=== PATIENT | male | born 1970 | race Caucasian/White ===

== ENCOUNTER 2016-11-18 12:43 | Inpatient (IN) | payer OTHER ==
[~2016-11-18] VITALS: Ht 172.7 cm; Wt 109.0 kg
[~2016-11-18 12:43] MED LIST: ADVAIR 250/501 DISK IH; AMBIEN5 MG PO; ASPIR 8181 M1 PO; ASPIRIN325 MG PO; ATARAX,VISTARIL50 MG PO; AVELOX400 MG PO; CARAFATE1 GM PO; DESYREL100 MG PO; DIAZEPAM5 MG PO; Desyrel PO; ECPIRIN325 M1; ELAVIL10 MG PO; Ecotrin PO; FLEXERIL10 MG PO; FLEXERIL5 MG PO; FLONASE16 G1 BOTH NARES; FLONASE16 G1 NS; FLOVENT DISKUS1 DIS2; GABAPENTIN100 MG PO; HYDROCODONE-AP1 EAC8 PO; IMDUR60 MG PO; LISINOPRIL40 MG PO; LOPRESSOR50 MG PO; MOBIC7.5 MG PO; MULTIPLE VITAM1 EACH PO; MULTIVITAMIN1 EAC2 PO; NAPROXEN500 MG PO; NEURONTIN300 MG PO; NEXIUM40 MG PO; NITROGLYCERIN0.4 MG SL; OMEPRAZOLE20 MG PO; OXYCODONE5 MG PO; OxyCODONE PO; PERCOCET 5/31 TABLET PO; PLAVIX75 MG PO; PREDNISONE20 MG PO; PREDNISONE50 MG PO; PRILOSEC20 MG PO; PRINIVIL40 MG PO; PROAIR HFA8.5 GM; Proventil,Ventolin H IH; REGLAN10 MG PO; REQUIP1 MG PO; REQUIP2 MG PO; ROBITUSSIN AC,T10 ML PO; SIMVASTATIN40 M1 PO; SIMVASTATIN40 MG PO; SUCRALFATE1 GM PO; TOPROL XL50 MG PO; TRAMADOL HCL50 MG; TRAMADOL HCL50 MG PO; TRAZODONE HCL100 MG PO; ULTRAM50 MG PO; VALIUM5 MG; VENTOLIN HFA18 GM IH; ZITHROMAX Z-PA250 MG PO
[2016-11-18 14:47] LABS: EOSINOPHIL (%) 0.6 % (0-5); HEMATOCRIT 47.4 % (38.0-50.0); IMMATURE GRANULOCYTE (%) 0.3 % (0.0-0.7); INSTRUMENT ABS NEUTROPHIL CT 5.3 K/uL; LYMPHOCYTE COUNT 1.1 K/uL (1.0-2.8); MCH 27.6 PG (29.0-34.0); MCHC 33.5 G/DL (30.0-36.0); MCV 82.1 FL (86-99); MEAN PLAT.VOLUME 11.2 uM^3 (9.0-12.4); MONOCYTE (%) 4.3 % (3-12); MONOCYTE COUNT 0.3 K/uL (0-0.8); NEUTROPHIL (%) 78.4 % (45-76); NEUTROPHIL COUNT 5.3 K/uL (1.8-6.4); PLATELET COUNT 225 K/uL (156-360); RED BLOOD COUNT 5.77 M/uL (4.00-5.50); WHITE BLOOD COUNT 6.7 K/uL (4.1-10.2)
[2016-11-18 14:53] LABS: CHLORIDE 107 mEq/L (99-109); SODIUM 142 mEq/L (136-147)
[2016-11-18 14:55] LABS: GLUCOSE 101 mg/dL (70-99)
[2016-11-18 14:56] LABS: ANION GAP 15 MEQ/L (2-14)
[2016-11-18 14:59] LABS: GFR ESTIMATE (CALCULATED) > 59 mL/min/
[2016-11-18 15:00] LABS: UREA NITROGEN (BUN) 19 mg/dL (9-23)
[2016-11-18 15:05] LABS: TROP-I INTERPRETATION NEGATIVE; TROPONIN-I < 0.01 ng/mL (0.0-0.30)
[2016-11-18 16:55] LABS: D-DIMER ELISA 0.19 mg/L FEU (< 0.57)
[2016-11-18] MEDS ORDERED: GABAPENTIN400 MG PO (17:04)
[2016-11-18] MEDS ORDERED: OXYCODONE HCL5 MG PO (17:06)
[2016-11-18] MEDS ORDERED: CYCLOBENZAPRINE10 MG PO (17:06)
[2016-11-18] MEDS ORDERED: ROPINIROLE HCL2 MG PO (17:07)
[2016-11-18] MEDS ORDERED: VENTOLIN HFA18 GM IH (17:07)
[2016-11-18] MEDS ORDERED: LOPRESSOR50 MG PO (17:07)
[2016-11-18] MEDS ORDERED: MELOXICAM7.5 MG PO (17:09)
[2016-11-18 20:40] VITALS: BP 172/84
[2016-11-18 23:31] VITALS: BP 150/72
[2016-11-19 07:24] VITALS: BP 139/82
[2016-11-19 15:32] VITALS: BP 132/69
[2016-11-19 20:40] VITALS: BP 139/79
[2016-11-19 23:25] VITALS: BP 135/74
[2016-11-20 07:55] VITALS: BP 135/76
[2016-11-20] MEDS ORDERED: BENZONATATE100 MG PO (08:45)
[2016-11-20] MEDS ORDERED: AZITHROMYCIN500 M1 PO (08:45)
[2016-11-20] MEDS ORDERED: PREDNISONE20 MG PO (08:45)
== END 2016-11-20 10:00 | disposition home or self-care (01) | DRG 191 ==
LOC: RME 12:43 → EME 12:43 → EDOF 19:12 → 5SOUTH 19:12
PROVIDERS: Physician Assistant
DX: J44.1 Chronic obstructive pulmonary disease with (acute) exacerbation (principal); E78.5 Hyperlipidemia, unspecified; I10 Essential (primary) hypertension; F32.9 Major depressive disorder, single episode, unspecified; J20.9 Acute bronchitis, unspecified; R05 Cough; E66.9 Obesity, unspecified; R09.02 Hypoxemia; F12.90 Cannabis use, unspecified, uncomplicated; I25.10 Atherosclerotic heart disease of native coronary artery without angina pectoris; K21.9 Gastro-esophageal reflux disease without esophagitis; G89.29 Other chronic pain; R06.89 Other abnormalities of breathing; M54.9 Dorsalgia, unspecified; I69.351 Hemiplegia and hemiparesis following cerebral infarction affecting right dominant side; Z86.73 Personal history of transient ischemic attack (TIA), and cerebral infarction without residual deficits; I25.2 Old myocardial infarction; Z68.36 Body mass index [BMI] 36.0-36.9, adult; Z86.19 Personal history of other infectious and parasitic diseases
CPT/HCPCS: 71020; 80048; 84484; 85025; 85379; 93005; 94010; 94640; 94640 76; 94644; 94760; 94799; 99202; 99281; 99285; J1100; J1650; J2920; J2930; J3475; J7030; J7512; Q0177

== ENCOUNTER 2017-03-05 18:11 | Emergency (ER) | payer OTHER ==
[~2017-03-05] VITALS: Ht 172.7 cm; Wt 117.4 kg
[~2017-03-05 18:11] MED LIST changes: +AZITHROMYCIN500 M1 PO; +BENZONATATE100 MG PO; +CYCLOBENZAPRINE10 MG PO; +GABAPENTIN400 MG PO; +MELOXICAM7.5 MG PO; +OXYCODONE HCL5 MG PO; +ROPINIROLE HCL2 MG PO
[2017-03-05 20:20] VITALS: BP 139/85
== END 2017-03-05 20:21 | disposition home or self-care (01) ==
LOC: EME 18:11
DX: S61.012A Laceration without foreign body of left thumb without damage to nail, initial encounter (principal); Z23 Encounter for immunization; W26.0XXA Contact with knife, initial encounter; Y93.G9 Activity, other involving cooking and grilling; Z79.01 Long term (current) use of anticoagulants; Z88.0 Allergy status to penicillin
CPT/HCPCS: 99281; 99283; S0020

== ENCOUNTER 2017-06-26 12:42 | Observation (INO) | payer OTHER ==
[~2017-06-26] VITALS: Ht 172.7 cm; Wt 112.7 kg
[2017-06-26 13:51] LABS: EOSINOPHIL (%) 0.2 % (0-5); HEMATOCRIT 44.2 % (38.0-50.0); IMMATURE GRANULOCYTE (%) 0.3 % (0.0-0.7); INSTRUMENT ABS NEUTROPHIL CT 10.2 K/uL; LYMPHOCYTE COUNT 1.9 K/uL (1.0-2.8); MCH 28.3 PG (29.0-34.0); MCHC 34.2 G/DL (30.0-36.0); MCV 82.8 FL (86-99); MEAN PLAT.VOLUME 10.4 uM^3 (9.0-12.4); MONOCYTE (%) 6.6 % (3-12); MONOCYTE COUNT 0.9 K/uL (0-0.8); NEUTROPHIL (%) 78.4 % (45-76); NEUTROPHIL COUNT 10.2 K/uL (1.8-6.4); PLATELET COUNT 230 K/uL (156-360); RED BLOOD COUNT 5.34 M/uL (4.00-5.50)
[2017-06-26 14:05] LABS: INTER. NORMALIZED RATIO 1.1
[2017-06-26 14:07] LABS: PTT 27.9 SEC (25-37)
[2017-06-26 14:09] LABS: CHLORIDE 102 mEq/L (99-109); POTASSIUM 4.1 mEq/L (3.7-5.4); SODIUM 136 mEq/L (136-147)
[2017-06-26 14:10] LABS: GLUCOSE 102 mg/dL (70-99)
[2017-06-26 14:12] LABS: ANION GAP 11 MEQ/L (2-14)
[2017-06-26 14:14] LABS: GFR ESTIMATE (CALCULATED) > 59 mL/min/ (58.99-99999)
[2017-06-26 14:15] LABS: UREA NITROGEN (BUN) 22 mg/dL (9-23)
[2017-06-26 14:18] LABS: TROP-I INTERPRETATION NEGATIVE; TROPONIN-I < 0.01 ng/mL (0.0-0.30)
[2017-06-26] MEDS ORDERED: ATARAX,VISTARIL25 MG PO (16:52)
[2017-06-26] MEDS ORDERED: GABAPENTIN400 MG PO (16:52)
[2017-06-26] MEDS ORDERED: NITROSTAT0.4 MG SL (16:53)
[2017-06-26] MEDS ORDERED: VITAMIN D2000 UNI1 PO (16:54)
[2017-06-26] MEDS ORDERED: IRON325 M1 PO (16:54)
[2017-06-26] MEDS ORDERED: MIRALAX255 GM PO (16:54)
[2017-06-26 21:05] VITALS: BP 127/82
[2017-06-26 21:39] LABS: TROP-I INTERPRETATION NEGATIVE; TROPONIN-I < 0.01 ng/mL (0.0-0.30)
[2017-06-26 21:39] LABS: POINT-OF-CARE METER ID UU14302475
[2017-06-27 02:11] LABS: TROP-I INTERPRETATION NEGATIVE; TROPONIN-I < 0.01 ng/mL (0.0-0.30)
[2017-06-27 03:15] VITALS: BP 108/61
[2017-06-27 05:20] LABS: HEMATOCRIT 41.9 % (38.0-50.0); MCH 27.7 PG (29.0-34.0); MCHC 32.7 G/DL (30.0-36.0); MCV 84.6 FL (86-99); MEAN PLAT.VOLUME 10.4 uM^3 (9.0-12.4); PLATELET COUNT 222 K/uL (156-360); RBC DIS.WIDTH-SD 39.8 % (39-53); RED BLOOD COUNT 4.95 M/uL (4.00-5.50); WHITE BLOOD COUNT 8.5 K/uL (4.1-10.2)
[2017-06-27 05:45] LABS: ALKALINE PHOSPHATASE 65 IU/L (3-129); ANION GAP 9 MEQ/L (2-14); CHLORIDE 104 MEQ/L (99-109); GFR ESTIMATE (CALCULATED) > 59 mL/min/ (58.99-99999); GLUCOSE 82 mg/dL (70-99); POTASSIUM 3.9 MEQ/L (3.7-5.4); SAMPLE HEMOLYSIS CHECK 0; SAMPLE ICTERIC CHECK 0; SAMPLE LIPEMIA CHECK 0; SODIUM 140 MEQ/L (136-147); TOTAL BILIRUBIN 0.9 MG/DL (0.0-1.0); UREA NITROGEN (BUN) 16 mg/dL (9-23)
[2017-06-27 11:14] VITALS: BP 122/71
[2017-06-27] MEDS ORDERED: LOPRESSOR25 MG PO (11:28)
[2017-06-27 15:52] VITALS: BP 111/66
[2017-06-27 19:54] VITALS: BP 125/71
[2017-06-27 23:45] VITALS: BP 96/60
[2017-06-28 04:00] VITALS: BP 104/59
[2017-06-28 09:13] VITALS: BP 132/59
[2017-06-28] MEDS ORDERED: ZITHROMAX500 MG PO (09:54)
[2017-06-28] MEDS ORDERED: PREDNISONE10 MG PO (09:55)
== END 2017-06-28 12:02 | disposition home or self-care (01) ==
LOC: EME 12:42 → EDOF 19:53 → 5WEST 19:53 → ENRESERV 19:55 → 5WEST 20:57 → ENPENDDIS 06-28 09:56 → 5WEST 06-28 12:02
PROVIDERS: Emergency Medicine; Internal Medicine
DX: R07.89 Other chest pain (principal); I10 Essential (primary) hypertension; J44.1 Chronic obstructive pulmonary disease with (acute) exacerbation; R20.0 Anesthesia of skin; I25.10 Atherosclerotic heart disease of native coronary artery without angina pectoris; Z95.5 Presence of coronary angioplasty implant and graft; I25.2 Old myocardial infarction; I69.351 Hemiplegia and hemiparesis following cerebral infarction affecting right dominant side; Z87.891 Personal history of nicotine dependence; E78.5 Hyperlipidemia, unspecified; Z91.81 History of falling; F32.9 Major depressive disorder, single episode, unspecified; Z60.2 Problems related to living alone; Z82.49 Family history of ischemic heart disease and other diseases of the circulatory system; Z80.41 Family history of malignant neoplasm of ovary; Z79.82 Long term (current) use of aspirin; Z79.02 Long term (current) use of antithrombotics/antiplatelets; G89.29 Other chronic pain; Z79.891 Long term (current) use of opiate analgesic; Z88.0 Allergy status to penicillin
CPT/HCPCS: 70450; 71010; 71275; 80048; 80053; 82948; 84484; 85025; 85027; 85379; 85610; 85730; 93005; 93880; 94640; 94640 76; 94799; 99281; 99285; G0378; J1644; J2405; J2930; J7030; J7040; J7512; Q0177

== ENCOUNTER 2017-08-15 23:49 | Emergency (ER) | payer OTHER ==
[~2017-08-15] VITALS: Ht 172.7 cm; Wt 114.1 kg
[~2017-08-15 23:49] MED LIST changes: +ATARAX,VISTARIL25 MG PO; +COMPLETE MULTI1 EAC1 PO; +IRON325 M1 PO; +LOPRESSOR25 MG PO; +MIRALAX255 GM PO; -MULTIVITAMIN1 EAC2 PO; +NITROSTAT0.4 MG SL; +PREDNISONE10 MG PO; +VITAMIN D2000 UNI1 PO; +ZITHROMAX500 MG PO
[2017-08-16 00:54] LABS: HEMATOCRIT 44.6 % (38.0-50.0); HEMOGLOBIN 15.3 G/DL (12.5-16.6); MCH 29.5 PG (29.0-34.0); MCHC 34.3 G/DL (30.0-36.0); MCV 85.9 FL (86-99); PLATELET COUNT 248 K/uL (156-360); RBC DIS.WIDTH-CV 12.4 % (11.8-14.6); RBC DIS.WIDTH-SD 38.8 % (39-53); RED BLOOD COUNT 5.19 M/uL (4.00-5.50); WHITE BLOOD COUNT 14.2 K/uL (4.1-10.2)
[2017-08-16 01:10] LABS: CHLORIDE 103 mEq/L (99-109); SODIUM 140 mEq/L (136-147)
[2017-08-16 01:11] LABS: GLUCOSE 78 mg/dL (70-99)
[2017-08-16 01:15] LABS: GFR ESTIMATE (CALCULATED) > 59 mL/min/ (58.99-99999)
[2017-08-16 01:16] LABS: UREA NITROGEN (BUN) 15 mg/dL (9-23)
[2017-08-16] MEDS ORDERED: PREDNISONE20 MG PO (01:27)
[2017-08-16] MEDS ORDERED: DUONEB 2.5-0.5 M3 ML AEROSOL (01:27)
[2017-08-16] MEDS ORDERED: ZITHROMAX Z-PA250 MG PO (01:27)
[2017-08-16] MEDS ORDERED: NEBULIZER MC (01:27)
[2017-08-16 02:32] VITALS: BP 135/76
[2017-08-17] MEDS ORDERED: ATORVASTATIN CA80 MG PO (22:36)
[2017-08-17] MEDS ORDERED: CLOPIDOGREL75 MG PO (22:36)
[2017-08-17] MEDS ORDERED: FLUTICASONE PRO16 GM BOTH NARES (22:37)
[2017-08-17] MEDS ORDERED: ESOMEPRAZOLE MA40 MG PO (22:38)
[2017-08-17] MEDS ORDERED: DESYREL100 MG PO (22:39)
== END 2017-08-16 02:32 | disposition home or self-care (01) ==
LOC: EME 23:49
DX: J45.901 Unspecified asthma with (acute) exacerbation (principal); J44.0 Chronic obstructive pulmonary disease with (acute) lower respiratory infection; J18.9 Pneumonia, unspecified organism; I10 Essential (primary) hypertension; E78.5 Hyperlipidemia, unspecified; I25.2 Old myocardial infarction; Z86.73 Personal history of transient ischemic attack (TIA), and cerebral infarction without residual deficits; Z95.5 Presence of coronary angioplasty implant and graft; Z79.82 Long term (current) use of aspirin; Z88.0 Allergy status to penicillin
CPT/HCPCS: 71046; 80048; 85027; 94640; 99281; 99285; J7512

== ENCOUNTER 2017-08-17 18:12 | Inpatient (IN) | payer OTHER ==
[~2017-08-17] VITALS: Ht 172.7 cm; Wt 110.7 kg
[~2017-08-17 18:12] MED LIST changes: +DUONEB 2.5-0.5 M3 ML AEROSOL; +NEBULIZER MC
[2017-08-17 18:44] LABS: HEMATOCRIT 46.4 % (38.0-50.0); HEMOGLOBIN 15.9 G/DL (12.5-16.6); MCH 29.2 PG (29.0-34.0); MCHC 34.3 G/DL (30.0-36.0); MCV 85.3 FL (86-99); PLATELET COUNT 288 K/uL (156-360); RBC DIS.WIDTH-CV 12.6 % (11.8-14.6); RBC DIS.WIDTH-SD 38.5 % (39-53); RED BLOOD COUNT 5.44 M/uL (4.00-5.50)
[2017-08-17 18:53] LABS: CHLORIDE 105 mEq/L (99-109); POTASSIUM 4.4 mEq/L (3.7-5.4); SODIUM 139 mEq/L (136-147)
[2017-08-17 18:55] LABS: GLUCOSE 135 mg/dL (70-99)
[2017-08-17 18:58] LABS: CREATININE 1.2 mg/dL (0.6-1.3); GFR ESTIMATE (CALCULATED) > 59 mL/min/ (58.99-99999)
[2017-08-17 19:01] LABS: UREA NITROGEN (BUN) 24 mg/dL (9-23)
[2017-08-17 19:07] LABS: ALBUMIN 4.8 g/dL (3.2-4.8); TROP-I INTERPRETATION NEGATIVE; TROPONIN-I < 0.01 ng/mL (0.0-0.30)
[2017-08-17 19:08] LABS: PTT 26.5 SEC (25-37)
[2017-08-17 19:10] LABS: TOTAL PROTEIN 7.5 g/dL (6.4-8.3)
[2017-08-17 19:12] LABS: TOTAL BILIRUBIN 0.6 mg/dL (0.0-1.0)
[2017-08-17 19:13] LABS: ALKALINE PHOSPHATASE 71 IU/L (3-129)
[2017-08-17 19:15] LABS: AST (GOT) 16 IU/L (2-34); DIRECT BILIRUBIN 0.2 mg/dL (0.0-0.3)
[2017-08-17 19:16] LABS: ALT (GPT) 24 IU/L (3-49); LIPASE 21 U/L (1.0-51.0)
[2017-08-17] MEDS ORDERED: CLOPIDOGREL75 MG PO (22:36)
[2017-08-17] MEDS ORDERED: ATORVASTATIN CA80 MG PO (22:36)
[2017-08-17] MEDS ORDERED: FLUTICASONE PRO16 GM BOTH NARES (22:37)
[2017-08-17] MEDS ORDERED: ESOMEPRAZOLE MA40 MG PO (22:38)
[2017-08-17] MEDS ORDERED: DESYREL100 MG PO (22:39)
[2017-08-18] VITALS (9 sets, daily range): BP systolic 130–152; BP diastolic 73–90
[2017-08-18 02:49] LABS: APPEARANCE SL.HAZY ((CLEAR)); BILIRUBIN NEGATIVE; BLOOD NEGATIVE; COLOR YELLOW ((YELLOW)); GLUCOSE (STRIP) NEGATIVE; KETONES NEGATIVE; LEUKOCYTES NEGATIVE; NITRITE NEGATIVE; PROTEIN (STRIP) 30; SPECIFIC GRAVITY 1.029 (1.000-1.030); UROBILINOGEN 0.2 MG/DL (0.2-1.0)
[2017-08-18 02:56] LABS: BACTERIA NONE SEEN /HPF; EPITHELIAL CELLS RARE /HPF; MUCUS 3+ /LPF; RED BLOOD CELLS 0-5 /HPF (0-5); WHITE BLOOD CELLS 0-5 /HPF (0-5)
[2017-08-18 03:05] LABS: HEMATOCRIT 43.1 % (38.0-50.0); HEMOGLOBIN 14.8 G/DL (12.5-16.6); MCH 29.4 PG (29.0-34.0); MCHC 34.3 G/DL (30.0-36.0); MCV 85.7 FL (86-99); PLATELET COUNT 253 K/uL (156-360); RBC DIS.WIDTH-CV 12.6 % (11.8-14.6); RBC DIS.WIDTH-SD 39.2 % (39-53); RED BLOOD COUNT 5.03 M/uL (4.00-5.50); WHITE BLOOD COUNT 13.9 K/uL (4.1-10.2)
[2017-08-18 03:25] LABS: TROP-I INTERPRETATION NEGATIVE; TROPONIN-I < 0.01 ng/mL (0.0-0.30)
[2017-08-18 10:15] LABS: TROP-I INTERPRETATION NEGATIVE; TROPONIN-I < 0.01 ng/mL (0.0-0.30)
[2017-08-19] VITALS (7 sets, daily range): BP systolic 121–158; BP diastolic 71–87
[2017-08-19 05:30] LABS: CHLORIDE 105 MEQ/L (99-109); CREATININE 0.8 MG/DL (0.6-1.3); GFR ESTIMATE (CALCULATED) > 59 mL/min/ (58.99-99999); GLUCOSE 126 mg/dL (70-99); POTASSIUM 4.4 MEQ/L (3.7-5.4); SODIUM 138 MEQ/L (136-147); UREA NITROGEN (BUN) 20 mg/dL (9-23)
[2017-08-19 13:28] LABS: TROP-I INTERPRETATION NEGATIVE; TROPONIN-I < 0.01 ng/mL (0.0-0.30)
[2017-08-20 04:00] VITALS: BP 130/75
[2017-08-20 07:43] VITALS: BP 129/79
[2017-08-20 12:00] VITALS: BP 143/85
[2017-08-20 16:35] VITALS: BP 157/87
[2017-08-20 19:49] VITALS: BP 140/70
[2017-08-20 23:49] VITALS: BP 135/64
[2017-08-21 03:35] VITALS: BP 115/69
[2017-08-21 08:30] VITALS: BP 151/82
[2017-08-21 12:07] VITALS: BP 125/71
[2017-08-21] MEDS ORDERED: SPIRIVA RESPIMAT4 GM IH (16:03)
[2017-08-21] MEDS ORDERED: OMNICEF300 MG PO (16:05)
[2017-08-21] MEDS ORDERED: PREDNISONE20 MG PO (16:06)
[2017-08-21] MEDS ORDERED: ALBUTEROL2.5 MG/0.5 AEROSOL (16:09)
[2017-08-21] MEDS ORDERED: ALBUTEROL2.5 MG/3 M IH (16:29)
[2017-08-21 16:30] VITALS: BP 176/79
[2017-08-21] MEDS ORDERED: PERCOCET 5/31 TABLET PO (16:36)
== END 2017-08-21 18:55 | disposition home or self-care (01) | DRG 190 ==
LOC: EME 18:12 → 3EAST 08-18 01:21 → EDOF 08-18 01:21 → ENRESERV 08-18 01:22 → 3EAST 08-18 02:45
PROVIDERS: Emergency Medicine; Hospitalist
DX: J44.0 Chronic obstructive pulmonary disease with (acute) lower respiratory infection (principal); J96.01 Acute respiratory failure with hypoxia; J20.9 Acute bronchitis, unspecified; J44.1 Chronic obstructive pulmonary disease with (acute) exacerbation; E87.2 Acidosis; R30.0 Dysuria; I10 Essential (primary) hypertension; I25.10 Atherosclerotic heart disease of native coronary artery without angina pectoris; E78.5 Hyperlipidemia, unspecified; F32.9 Major depressive disorder, single episode, unspecified; F41.9 Anxiety disorder, unspecified; G89.29 Other chronic pain; M54.9 Dorsalgia, unspecified; I69.351 Hemiplegia and hemiparesis following cerebral infarction affecting right dominant side; I25.2 Old myocardial infarction; Z95.5 Presence of coronary angioplasty implant and graft; Z87.891 Personal history of nicotine dependence; Z86.19 Personal history of other infectious and parasitic diseases; Z79.02 Long term (current) use of antithrombotics/antiplatelets; Z79.82 Long term (current) use of aspirin
CPT/HCPCS: 71045; 71046; 71250; 76705; 80048; 80076; 81003; 83605; 83690; 84484; 85027; 85610; 85730; 87040; 87070; 87205; 87502; 93005; 94640; 94640 76; 94799; 99202; 99281; 99285; J0456; J0692; J1644; J2270; J2930; J7030; J7512; Q0177

== ENCOUNTER 2017-08-24 23:58 | Inpatient (IN) | payer OTHER ==
[~2017-08-24] VITALS: Ht 172.7 cm; Wt 105.5 kg
[~2017-08-24 23:58] MED LIST changes: +ALBUTEROL2.5 MG/0.5 AEROSOL; +ALBUTEROL2.5 MG/3 M IH; +ATORVASTATIN CA80 MG PO; +CLOPIDOGREL75 MG PO; +ESOMEPRAZOLE MA40 MG PO; +FLUTICASONE PRO16 GM BOTH NARES; +OMNICEF300 MG PO; +SPIRIVA RESPIMAT4 GM IH
[2017-08-25 00:45] LABS: HEMATOCRIT 46.7 % (38.0-50.0); HEMOGLOBIN 16.1 G/DL (12.5-16.6); MCH 28.7 PG (29.0-34.0); MCHC 34.5 G/DL (30.0-36.0); MCV 83.2 FL (86-99); PLATELET COUNT 261 K/uL (156-360); RBC DIS.WIDTH-CV 12.3 % (11.8-14.6); RBC DIS.WIDTH-SD 37.3 % (39-53); RED BLOOD COUNT 5.61 M/uL (4.00-5.50); WHITE BLOOD COUNT 14.5 K/uL (4.1-10.2)
[2017-08-25 00:49] LABS: CARBON DIOXIDE (BICARBONATE) 30.7 MEQ/L (20-31)
[2017-08-25 00:55] LABS: INTER. NORMALIZED RATIO 0.9
[2017-08-25 00:57] LABS: PTT 27.3 SEC (25-37)
[2017-08-25 01:07] LABS: TROP-I INTERPRETATION NEGATIVE; TROPONIN-I < 0.01 ng/mL (0.0-0.30)
[2017-08-25 01:13] LABS: ALBUMIN 5.1 G/DL (3.2-4.8); ALKALINE PHOSPHATASE 63 IU/L (3-129); ALT (GPT) 70 IU/L (3-49); AST (GOT) 27 IU/L (2-34); CHLORIDE 97 MEQ/L (99-109); GFR ESTIMATE (CALCULATED) > 59 mL/min/ (58.99-99999); GLUCOSE 83 mg/dL (70-99); LIPASE 72 U/L (1.0-51.0); POTASSIUM 3.7 MEQ/L (3.7-5.4); SODIUM 136 MEQ/L (136-147); TOTAL BILIRUBIN 0.9 MG/DL (0.0-1.0); TOTAL PROTEIN 7.9 G/DL (6.4-8.3); UREA NITROGEN (BUN) 25 mg/dL (9-23)
[2017-08-25 11:27] VITALS: BP 160/85
[2017-08-25] MEDS ORDERED: TYLENOL EXTRA500 MG PO (11:37)
[2017-08-25] MEDS ORDERED: NEURONTIN400 MG PO (11:40)
[2017-08-25] MEDS ORDERED: LOPRESSOR25 MG PO (11:47)
[2017-08-25] MEDS ORDERED: FLONASE16 G1 BOTH NARES (11:51)
[2017-08-25] MEDS ORDERED: DELTASONE20 M1 PO (11:57)
[2017-08-25] MEDS ORDERED: OMNICEF300 MG PO (11:59)
[2017-08-25 12:34] LABS: TROP-I INTERPRETATION NEGATIVE; TROPONIN-I < 0.01 ng/mL (0.0-0.30)
[2017-08-25 15:12] VITALS: BP 135/75
[2017-08-25 18:58] VITALS: BP 155/80
[2017-08-25 19:08] LABS: TROP-I INTERPRETATION NEGATIVE; TROPONIN-I < 0.01 ng/mL (0.0-0.30)
[2017-08-25 23:50] VITALS: BP 150/78
[2017-08-26 03:44] VITALS: BP 148/74
[2017-08-26 07:00] LABS: HEMATOCRIT 40.3 % (38.0-50.0); MCV 85.2 FL (86-99); PLATELET COUNT 230 K/uL (156-360); RBC DIS.WIDTH-CV 12.5 % (11.8-14.6); RBC DIS.WIDTH-SD 38.6 % (39-53); RED BLOOD COUNT 4.73 M/uL (4.00-5.50); WHITE BLOOD COUNT 15.8 K/uL (4.1-10.2)
[2017-08-26 07:10] LABS: HEMOGLOBIN 13.7 G/DL (12.5-16.6)
[2017-08-26 07:15] LABS: CHLORIDE 102 MEQ/L (99-109); CREATININE 0.9 MG/DL (0.6-1.3); GFR ESTIMATE (CALCULATED) > 59 mL/min/ (58.99-99999); SODIUM 136 MEQ/L (136-147); UREA NITROGEN (BUN) 21 mg/dL (9-23)
[2017-08-26 07:16] LABS: GLUCOSE 115 mg/dL (70-99); POTASSIUM 4.8 MEQ/L (3.7-5.4)
[2017-08-26 07:29] VITALS: BP 134/79
[2017-08-26] MEDS ORDERED: DUONEB 2.5-0.5 M3 ML AEROSOL (11:44)
[2017-08-26 15:34] VITALS: BP 127/73
[2017-08-26 19:38] VITALS: BP 167/77
[2017-08-26 23:16] VITALS: BP 124/67
[2017-08-27 04:00] VITALS: BP 139/76
[2017-08-27 06:00] LABS: HEMATOCRIT 40.3 % (38.0-50.0); HEMOGLOBIN 13.6 G/DL (12.5-16.6); MCH 29.1 PG (29.0-34.0); MCHC 33.7 G/DL (30.0-36.0); MCV 86.3 FL (86-99); PLATELET COUNT 227 K/uL (156-360); RBC DIS.WIDTH-CV 12.8 % (11.8-14.6); RBC DIS.WIDTH-SD 39.8 % (39-53); RED BLOOD COUNT 4.67 M/uL (4.00-5.50); WHITE BLOOD COUNT 17.6 K/uL (4.1-10.2)
[2017-08-27 07:17] VITALS: BP 137/82
[2017-08-27 11:02] VITALS: BP 133/75
[2017-08-27] MEDS ORDERED: MONTELUKAST SOD10 MG PO (11:07)
[2017-08-27] MEDS ORDERED: SPIRIVA18 MCG IH (11:07)
[2017-08-27] MEDS ORDERED: PREDNISONE10 MG PO (11:07)
[2017-08-27] MEDS ORDERED: MUCINEX600 MG PO (11:07)
[2017-08-27] MEDS ORDERED: SORE THROAT LO1 EAC3 MM (11:07)
[2017-08-27] MEDS ORDERED: INCRUSE ELLI62.5 MCG IH (13:40)
== END 2017-08-27 15:31 | disposition home or self-care (01) | DRG 189 ==
LOC: EME → EDBD 23:58 → EME 23:58 → EDSEX 23:58 → EDOF 08-25 04:17 → 5SOUTH 08-25 04:17 → ENRESERV 08-25 04:19 → 5SOUTH 08-25 11:13
PROVIDERS: Emergency Medicine; Hospitalist; Internal Medicine
DX: J96.01 Acute respiratory failure with hypoxia (principal); J45.901 Unspecified asthma with (acute) exacerbation; J44.1 Chronic obstructive pulmonary disease with (acute) exacerbation; E78.5 Hyperlipidemia, unspecified; I10 Essential (primary) hypertension; F32.9 Major depressive disorder, single episode, unspecified; F41.9 Anxiety disorder, unspecified; I25.10 Atherosclerotic heart disease of native coronary artery without angina pectoris; Z95.5 Presence of coronary angioplasty implant and graft; E66.01 Morbid (severe) obesity due to excess calories; Z87.891 Personal history of nicotine dependence; Z76.5 Malingerer [conscious simulation]; R13.10 Dysphagia, unspecified; Z86.73 Personal history of transient ischemic attack (TIA), and cerebral infarction without residual deficits; E87.3 Alkalosis; Z68.35 Body mass index [BMI] 35.0-35.9, adult; K21.9 Gastro-esophageal reflux disease without esophagitis; G89.29 Other chronic pain; F12.90 Cannabis use, unspecified, uncomplicated; I25.2 Old myocardial infarction
CPT/HCPCS: 36600; 71045; 74230; 80048; 80053; 82803; 83605; 83690; 83880; 84484; 85027; 85610; 85730; 87040; 92611 GN; 93005; 94002; 94640; 94640 76; 94760; 94799; 99202; 99281; 99285; J1650; J1885; J2270; J2930; J3475; J7644; Q0177

== ENCOUNTER 2017-08-29 18:59 | Inpatient (IN) | payer OTHER ==
[~2017-08-29] VITALS: Ht 172.7 cm; Wt 108.7 kg
[~2017-08-29 18:59] MED LIST changes: +DELTASONE20 M1 PO; +INCRUSE ELLI62.5 MCG IH; +MONTELUKAST SOD10 MG PO; +MUCINEX600 MG PO; +NEURONTIN400 MG PO; +SORE THROAT LO1 EAC3 MM; +SPIRIVA18 MCG IH; +TYLENOL EXTRA500 MG PO
[2017-08-29 20:27] LABS: HEMATOCRIT 40.5 % (38.0-50.0); HEMOGLOBIN 14.1 G/DL (12.5-16.6); MCH 29.7 PG (29.0-34.0); MCHC 34.8 G/DL (30.0-36.0); MCV 85.4 FL (86-99); PLATELET COUNT 216 K/uL (156-360); RBC DIS.WIDTH-CV 12.5 % (11.8-14.6); RBC DIS.WIDTH-SD 38.7 % (39-53); RED BLOOD COUNT 4.74 M/uL (4.00-5.50); WHITE BLOOD COUNT 17.1 K/uL (4.1-10.2)
[2017-08-29 20:43] LABS: CHLORIDE 105 mEq/L (99-109); POTASSIUM 4.2 mEq/L (3.7-5.4); SODIUM 139 mEq/L (136-147)
[2017-08-29 20:45] LABS: GLUCOSE 162 mg/dL (70-99)
[2017-08-29 20:49] LABS: CREATININE 0.8 mg/dL (0.6-1.3); GFR ESTIMATE (CALCULATED) > 59 mL/min/ (58.99-99999)
[2017-08-29 20:50] LABS: UREA NITROGEN (BUN) 19 mg/dL (9-23)
[2017-08-29 20:56] LABS: TROP-I INTERPRETATION NEGATIVE; TROPONIN-I < 0.01 ng/mL (0.0-0.30)
[2017-08-29 21:02] LABS: CARBON DIOXIDE (BICARBONATE) 23.6 MEQ/L (20-31)
[2017-08-29 21:06] LABS: APPEARANCE CLEAR ((CLEAR)); BILIRUBIN NEGATIVE; BLOOD NEGATIVE; COLOR YELLOW ((YELLOW)); GLUCOSE (STRIP) 50; KETONES NEGATIVE; LEUKOCYTES NEGATIVE; NITRITE NEGATIVE; PROTEIN (STRIP) NEGATIVE; SPECIFIC GRAVITY 1.028 (1.000-1.030); UCUL ADDED? NO; UROBILINOGEN 0.2 MG/DL (0.2-1.0)
[2017-08-30] VITALS (7 sets, daily range): BP systolic 116–160; BP diastolic 62–95
[2017-08-30 03:44] LABS: HEMATOCRIT 40.1 % (38.0-50.0); HEMOGLOBIN 13.7 G/DL (12.5-16.6); MCH 29.3 PG (29.0-34.0); MCHC 34.2 G/DL (30.0-36.0); MCV 85.7 FL (86-99); PLATELET COUNT 199 K/uL (156-360); RBC DIS.WIDTH-CV 12.6 % (11.8-14.6); RBC DIS.WIDTH-SD 39.4 % (39-53); RED BLOOD COUNT 4.68 M/uL (4.00-5.50); WHITE BLOOD COUNT 12.9 K/uL (4.1-10.2)
[2017-08-30 04:08] LABS: CHLORIDE 105 mEq/L (99-109); POTASSIUM 4.3 mEq/L (3.7-5.4); SODIUM 140 mEq/L (136-147)
[2017-08-30 04:09] LABS: GLUCOSE 147 mg/dL (70-99)
[2017-08-30 04:13] LABS: CREATININE 0.8 mg/dL (0.6-1.3); GFR ESTIMATE (CALCULATED) > 59 mL/min/ (58.99-99999)
[2017-08-30 04:14] LABS: UREA NITROGEN (BUN) 15 mg/dL (9-23)
[2017-08-30 04:15] LABS: TROP-I INTERPRETATION NEGATIVE; TROPONIN-I 0.02 ng/mL (0.0-0.30)
[2017-08-30 09:31] LABS: TROP-I INTERPRETATION NEGATIVE; TROPONIN-I < 0.01 ng/mL (0.0-0.30)
[2017-08-31 03:51] VITALS: BP 144/78
[2017-08-31 08:24] VITALS: BP 132/82
[2017-08-31 11:34] VITALS: BP 130/76
[2017-08-31 16:05] VITALS: BP 147/79
[2017-08-31 19:57] VITALS: BP 138/77
[2017-09-01 00:08] VITALS: BP 132/76
[2017-09-01 03:26] VITALS: BP 134/78
[2017-09-01 08:33] VITALS: BP 137/78
[2017-09-01] MEDS ORDERED: PREDNISONE10 MG PO (12:42)
[2017-09-01] MEDS ORDERED: LEVOFLOXACIN500 MG PO (12:42)
[2017-09-01 13:00] VITALS: BP 130/79
== END 2017-09-01 13:59 | disposition home health service (06) | DRG 191 ==
LOC: EME 18:59 → 5SOUTH 22:35 → EDOF 22:35 → ENRESERV 22:36 → 5SOUTH 23:40
PROVIDERS: Hospitalist; Physician Assistant
PROC: 5A09357 Assistance with Respiratory Ventilation, Less than 24 Consecutive Hours, Continuous Positive Airway Pressure (ICD-10-PCS; principal; 2017-08-30)
DX: J44.1 Chronic obstructive pulmonary disease with (acute) exacerbation (principal); J45.901 Unspecified asthma with (acute) exacerbation; J44.0 Chronic obstructive pulmonary disease with (acute) lower respiratory infection; J20.9 Acute bronchitis, unspecified; D72.829 Elevated white blood cell count, unspecified; T38.0X5A Adverse effect of glucocorticoids and synthetic analogues, initial encounter; I10 Essential (primary) hypertension; I25.10 Atherosclerotic heart disease of native coronary artery without angina pectoris; E78.5 Hyperlipidemia, unspecified; G47.33 Obstructive sleep apnea (adult) (pediatric); F32.9 Major depressive disorder, single episode, unspecified; F41.9 Anxiety disorder, unspecified; G89.29 Other chronic pain; M54.9 Dorsalgia, unspecified; F12.90 Cannabis use, unspecified, uncomplicated; E66.9 Obesity, unspecified; Z68.36 Body mass index [BMI] 36.0-36.9, adult; Z87.891 Personal history of nicotine dependence; Z95.5 Presence of coronary angioplasty implant and graft; Z86.19 Personal history of other infectious and parasitic diseases; Z86.73 Personal history of transient ischemic attack (TIA), and cerebral infarction without residual deficits; Z79.82 Long term (current) use of aspirin; Z79.02 Long term (current) use of antithrombotics/antiplatelets
CPT/HCPCS: 71046; 80048; 81003; 82803; 84484; 85027; 87070; 87205; 87502; 87651 90; 93005; 93970; 94640; 94640 76; 94644; 94660; 99202; 99281; 99285; J1644; J2270; J2930; J7512

== ENCOUNTER 2017-12-15 20:48 | Inpatient (IN) | payer OTHER ==
[~2017-12-15] VITALS: Ht 172.7 cm; Wt 115.2 kg
[~2017-12-15 20:48] MED LIST changes: +LEVOFLOXACIN500 MG PO
[2017-12-15 21:51] LABS: HEMATOCRIT 46.4 % (38.0-50.0); HEMOGLOBIN 16.1 G/DL (12.5-16.6); MCH 29.1 PG (29.0-34.0); MCHC 34.7 G/DL (30.0-36.0); MCV 83.9 FL (86-99); PLATELET COUNT 243 K/uL (156-360); RBC DIS.WIDTH-CV 12.9 % (11.8-14.6); RBC DIS.WIDTH-SD 39.1 % (39-53); RED BLOOD COUNT 5.53 M/uL (4.00-5.50); WHITE BLOOD COUNT 19.6 K/uL (4.1-10.2)
[2017-12-15 22:07] LABS: CHLORIDE 103 mEq/L (99-109); POTASSIUM 4.3 mEq/L (3.7-5.4); SODIUM 136 mEq/L (136-147)
[2017-12-15 22:09] LABS: GLUCOSE 104 mg/dL (70-99)
[2017-12-15 22:12] LABS: CREATININE 1.2 mg/dL (0.6-1.3); GFR ESTIMATE (CALCULATED) > 59 mL/min/ (58.99-99999)
[2017-12-15 22:13] LABS: TROP-I INTERPRETATION NEGATIVE; TROPONIN-I < 0.01 ng/mL (0.0-0.30); UREA NITROGEN (BUN) 16 mg/dL (9-23)
[2017-12-16 02:43] LABS: TROP-I INTERPRETATION NEGATIVE; TROPONIN-I < 0.01 ng/mL (0.0-0.30)
[2017-12-16 03:12] VITALS: BP 120/82
[2017-12-16 03:41] LABS: C DIFF TOXIN NEGATIVE (NEGATIVE)
[2017-12-16 05:50] LABS: BASOPHIL (%) 0.4 % (0-1); BASOPHIL COUNT 0.1 K/uL (0-0.1); EOSINOPHIL (%) 0.2 % (0-5); IMMATURE GRANULOCYTE (%) 0.3 % (0.0-0.7); LYMPHOCYTE (%) 14.1 % (15-42); LYMPHOCYTE COUNT 1.8 K/uL (1.0-2.8); MCH 28.1 PG (29.0-34.0); MCHC 33.3 G/DL (30.0-36.0); MCV 84.2 FL (86-99); MONOCYTE (%) 8.7 % (3-12); MONOCYTE COUNT 1.1 K/uL (0-0.8); NEUTROPHIL (%) 76.3 % (45-76); NEUTROPHIL COUNT 9.5 K/uL (1.8-6.4); PLATELET COUNT 216 K/uL (156-360); RBC DIS.WIDTH-SD 39.6 % (39-53); RED BLOOD COUNT 4.99 M/uL (4.00-5.50); WHITE BLOOD COUNT 12.5 K/uL (4.1-10.2)
[2017-12-16 06:11] LABS: TROP-I INTERPRETATION NEGATIVE; TROPONIN-I < 0.01 ng/mL (0.0-0.30)
[2017-12-16 06:14] LABS: CHLORIDE 104 MEQ/L (99-109); GFR ESTIMATE (CALCULATED) > 59 mL/min/ (58.99-99999); GLUCOSE 96 mg/dL (70-99); POTASSIUM 4.1 MEQ/L (3.7-5.4); SODIUM 138 MEQ/L (136-147); UREA NITROGEN (BUN) 16 mg/dL (9-23)
[2017-12-16 07:40] VITALS: BP 112/72
[2017-12-16 12:04] VITALS: BP 126/83
[2017-12-16] MEDS ORDERED: ROSUVASTATIN CA40 MG PO (15:22)
[2017-12-16 16:11] VITALS: BP 128/82
[2017-12-16 19:32] VITALS: BP 129/77
[2017-12-16 22:59] VITALS: BP 105/69
[2017-12-17 03:32] VITALS: BP 110/73
[2017-12-17 05:31] LABS: HEMOGLOBIN 13.3 G/DL (12.5-16.6); MCH 28.1 PG (29.0-34.0); MCHC 33.3 G/DL (30.0-36.0); MCV 84.6 FL (86-99); PLATELET COUNT 207 K/uL (156-360); RBC DIS.WIDTH-CV 12.8 % (11.8-14.6); RBC DIS.WIDTH-SD 39.3 % (39-53); RED BLOOD COUNT 4.73 M/uL (4.00-5.50); WHITE BLOOD COUNT 7.5 K/uL (4.1-10.2)
[2017-12-17 06:07] LABS: CHLORIDE 106 MEQ/L (99-109); CREATININE 0.9 MG/DL (0.6-1.3); GFR ESTIMATE (CALCULATED) > 59 mL/min/ (58.99-99999); GLUCOSE 90 mg/dL (70-99); SODIUM 139 MEQ/L (136-147); UREA NITROGEN (BUN) 13 mg/dL (9-23)
[2017-12-17 07:49] VITALS: BP 106/70
[2017-12-17 15:59] VITALS: BP 132/75
[2017-12-17 23:35] VITALS: BP 132/84
[2017-12-18 07:15] VITALS: BP 126/78
[2017-12-18 15:16] VITALS: BP 115/66
[2017-12-19 00:50] VITALS: BP 126/65
[2017-12-19 06:17] LABS: HEMATOCRIT 40.4 % (38.0-50.0); HEMOGLOBIN 13.4 G/DL (12.5-16.6); MCH 27.9 PG (29.0-34.0); MCHC 33.2 G/DL (30.0-36.0); PLATELET COUNT 214 K/uL (156-360); RBC DIS.WIDTH-CV 12.5 % (11.8-14.6); RED BLOOD COUNT 4.81 M/uL (4.00-5.50); WHITE BLOOD COUNT 5.6 K/uL (4.1-10.2)
[2017-12-19 06:50] LABS: CHLORIDE 106 MEQ/L (99-109); GFR ESTIMATE (CALCULATED) > 59 mL/min/ (58.99-99999); GLUCOSE 90 mg/dL (70-99); POTASSIUM 4.1 MEQ/L (3.7-5.4); SODIUM 141 MEQ/L (136-147); UREA NITROGEN (BUN) 8 mg/dL (9-23)
[2017-12-19 07:46] VITALS: BP 142/93
[2017-12-19 07:50] VITALS: BP 142/93
[2017-12-19] MEDS ORDERED: FLORASTOR250 MG PO (12:02)
[2017-12-19] MEDS ORDERED: AZITHROMYCIN500 M1 PO (12:02)
== END 2017-12-19 13:10 | disposition home or self-care (01) | DRG 872 ==
LOC: EME 20:48 → 5SOUTH 12-16 00:35 → EDOF 12-16 00:35 → ENRESERV 12-16 00:51 → 5SOUTH 12-16 02:51
PROVIDERS: Emergency Medicine; Internal Medicine
DX: A41.59 Other Gram-negative sepsis (principal); A04.5 Campylobacter enteritis; E87.2 Acidosis; J90 Pleural effusion, not elsewhere classified; F33.9 Major depressive disorder, recurrent, unspecified; J44.9 Chronic obstructive pulmonary disease, unspecified; E78.5 Hyperlipidemia, unspecified; I10 Essential (primary) hypertension; I25.10 Atherosclerotic heart disease of native coronary artery without angina pectoris; D50.9 Iron deficiency anemia, unspecified; F41.9 Anxiety disorder, unspecified; G89.29 Other chronic pain; Z60.2 Problems related to living alone; N20.0 Calculus of kidney; Z86.19 Personal history of other infectious and parasitic diseases; Z86.73 Personal history of transient ischemic attack (TIA), and cerebral infarction without residual deficits; Z87.891 Personal history of nicotine dependence; Z99.81 Dependence on supplemental oxygen; Z88.1 Allergy status to other antibiotic agents; Z88.0 Allergy status to penicillin; Z79.51 Long term (current) use of inhaled steroids; Z79.82 Long term (current) use of aspirin; Z82.49 Family history of ischemic heart disease and other diseases of the circulatory system; Z83.3 Family history of diabetes mellitus
CPT/HCPCS: 71046; 71275; 74176; 74177; 80048; 84484; 85025; 85027; 85379; 87040; 87045; 87077; 87177; 87493; 87506; 93005; 94640; 94640 76; 99202; 99281; 99285; J0456; J0696; J1644; J2405; J3010; J7030; S0028; S0030

== ENCOUNTER 2018-01-04 21:25 | Inpatient (IN) | payer OTHER ==
[~2018-01-04] VITALS: Ht 172.7 cm; Wt 115.8 kg
[~2018-01-04 21:25] MED LIST changes: +FLORASTOR250 MG PO; +ROSUVASTATIN CA40 MG PO
[2018-01-04 22:11] LABS: BASOPHIL (%) 0.3 % (0-1); EOSINOPHIL (%) 0.2 % (0-5); HEMATOCRIT 36.1 % (38.0-50.0); IMMATURE GRANULOCYTE (%) 0.2 % (0.0-0.7); LYMPHOCYTE COUNT 1.3 K/uL (1.0-2.8); MCH 29.1 PG (29.0-34.0); MCHC 34.6 G/DL (30.0-36.0); MONOCYTE (%) 7.2 % (3-12); MONOCYTE COUNT 0.5 K/uL (0-0.8); NEUTROPHIL (%) 71.1 % (45-76); NEUTROPHIL COUNT 4.5 K/uL (1.8-6.4); RBC DIS.WIDTH-CV 13.2 % (11.8-14.6); RBC DIS.WIDTH-SD 40.3 % (39-53); WHITE BLOOD COUNT 6.3 K/uL (4.1-10.2)
[2018-01-04 22:20] LABS: ALBUMIN 4.7 g/dL (3.2-4.8); CHLORIDE 104 mEq/L (99-109); POTASSIUM 4.2 mEq/L (3.7-5.4); SODIUM 138 mEq/L (136-147)
[2018-01-04 22:22] LABS: GLUCOSE 116 mg/dL (70-99)
[2018-01-04 22:23] LABS: TOTAL PROTEIN 7.2 g/dL (6.4-8.3)
[2018-01-04 22:24] LABS: TOTAL BILIRUBIN 0.4 mg/dL (0.0-1.0)
[2018-01-04 22:26] LABS: ALKALINE PHOSPHATASE 63 IU/L (3-129); GFR ESTIMATE (CALCULATED) 38 mL/min/ (58.99-99999)
[2018-01-04 22:27] LABS: UREA NITROGEN (BUN) 21 mg/dL (9-23)
[2018-01-04 22:28] LABS: AST (GOT) 25 IU/L (2-34)
[2018-01-04 22:29] LABS: ALT (GPT) 29 IU/L (3-49)
[2018-01-04 22:33] LABS: TROP-I INTERPRETATION NEGATIVE; TROPONIN-I 0.01 ng/mL (0.0-0.30)
[2018-01-04 22:51] LABS: HEMOGLOBIN 12.5 G/DL (12.5-16.6); PLATELET COUNT 178 K/uL (156-360)
[2018-01-05] VITALS (7 sets, daily range): BP systolic 135–182; BP diastolic 84–103
[2018-01-05 00:18] LABS: APPEARANCE CLEAR ((CLEAR)); BILIRUBIN NEGATIVE; BLOOD SMALL; COLOR YELLOW ((YELLOW)); GLUCOSE (STRIP) NEGATIVE; KETONES NEGATIVE; LEUKOCYTES NEGATIVE; NITRITE NEGATIVE; PROTEIN (STRIP) 30; SPECIFIC GRAVITY 1.011 (1.000-1.030); UROBILINOGEN 0.2 MG/DL (0.2-1.0)
[2018-01-05 00:29] LABS: BACTERIA NONE SEEN /HPF; EPITHELIAL CELLS RARE /HPF; HYALINE CASTS 0-5 /LPF; MUCUS TRACE /LPF; RED BLOOD CELLS 0-5 /HPF (0-5); UCUL ADDED? NO; WHITE BLOOD CELLS 0-5 /HPF (0-5)
[2018-01-05] MEDS ORDERED: NITROGLYCERIN0.4 MG SL (02:05)
[2018-01-05] MEDS ORDERED: LEVOFLOXACIN750 MG PO (02:06)
[2018-01-05] MEDS ORDERED: METRONIDAZOLE500 MG PO (02:06)
[2018-01-05] MEDS ORDERED: ONDANSETRON HCL4 MG PO (02:10)
[2018-01-05] MEDS ORDERED: ESOMEPRAZOLE MA40 MG PO (02:12)
[2018-01-05] MEDS ORDERED: ATARAX,VISTARIL25 MG PO (02:13)
[2018-01-05] MEDS ORDERED: FLUTICASONE PRO16 GM BOTH NARES (02:15)
[2018-01-05] MEDS ORDERED: IRON PO (02:23)
[2018-01-05 03:33] LABS: D-DIMER ELISA < 150.00 ng/mLDDU (<230)
[2018-01-05 03:46] LABS: TROP-I INTERPRETATION NEGATIVE; TROPONIN-I 0.01 ng/mL (0.0-0.30)
[2018-01-05 09:51] LABS: C DIFF TOXIN ND (NEGATIVE)
[2018-01-05 12:39] LABS: BASOPHIL (%) 0.3 % (0-1); EOSINOPHIL (%) 0.3 % (0-5); HEMATOCRIT 36.1 % (38.0-50.0); HEMOGLOBIN 12.2 G/DL (12.5-16.6); IMMATURE GRANULOCYTE (%) 0.2 % (0.0-0.7); LYMPHOCYTE (%) 20.4 % (15-42); LYMPHOCYTE COUNT 1.3 K/uL (1.0-2.8); MCH 28.8 PG (29.0-34.0); MCHC 33.8 G/DL (30.0-36.0); MCV 85.3 FL (86-99); MONOCYTE (%) 6.7 % (3-12); MONOCYTE COUNT 0.4 K/uL (0-0.8); NEUTROPHIL (%) 72.1 % (45-76); NEUTROPHIL COUNT 4.7 K/uL (1.8-6.4); PLATELET COUNT 152 K/uL (156-360); RBC DIS.WIDTH-CV 13.2 % (11.8-14.6); RBC DIS.WIDTH-SD 40.6 % (39-53); RED BLOOD COUNT 4.23 M/uL (4.00-5.50); WHITE BLOOD COUNT 6.6 K/uL (4.1-10.2)
[2018-01-05 13:01] LABS: CHLORIDE 105 MEQ/L (99-109); GFR ESTIMATE (CALCULATED) 57 mL/min/ (58.99-99999); GLUCOSE 96 mg/dL (70-99); POTASSIUM 4.4 MEQ/L (3.7-5.4); SODIUM 141 MEQ/L (136-147); UREA NITROGEN (BUN) 15 mg/dL (9-23)
[2018-01-05 13:02] LABS: CREATININE 1.4 MG/DL (0.6-1.3)
[2018-01-05 13:20] LABS: TROP-I INTERPRETATION NEGATIVE; TROPONIN-I < 0.01 ng/mL (0.0-0.30)
[2018-01-06 03:32] VITALS: BP 139/93
[2018-01-06 05:42] LABS: BASOPHIL (%) 0.5 % (0-1); EOSINOPHIL (%) 1.7 % (0-5); EOSINOPHIL COUNT 0.1 K/uL (0-0.3); HEMATOCRIT 36.2 % (38.0-50.0); HEMOGLOBIN 12.2 G/DL (12.5-16.6); IMMATURE GRANULOCYTE (%) 0.3 % (0.0-0.7); LYMPHOCYTE (%) 27.1 % (15-42); LYMPHOCYTE COUNT 1.6 K/uL (1.0-2.8); MCH 28.6 PG (29.0-34.0); MCHC 33.7 G/DL (30.0-36.0); MONOCYTE (%) 8.3 % (3-12); MONOCYTE COUNT 0.5 K/uL (0-0.8); NEUTROPHIL (%) 62.1 % (45-76); NEUTROPHIL COUNT 3.7 K/uL (1.8-6.4); PLATELET COUNT 161 K/uL (156-360); RBC DIS.WIDTH-CV 13.2 % (11.8-14.6); RBC DIS.WIDTH-SD 40.8 % (39-53); RED BLOOD COUNT 4.26 M/uL (4.00-5.50)
[2018-01-06 05:49] LABS: INTER. NORMALIZED RATIO 1.1
[2018-01-06 05:52] LABS: PTT 28.6 SEC (25-37)
[2018-01-06 05:54] LABS: ALBUMIN 4.1 G/DL (3.2-4.8); ALKALINE PHOSPHATASE 54 IU/L (3-129); ALT (GPT) 19 IU/L (3-49); AST (GOT) 16 IU/L (2-34); CHLORIDE 105 MEQ/L (99-109); CREATININE 1.2 MG/DL (0.6-1.3); GFR ESTIMATE (CALCULATED) > 59 mL/min/ (58.99-99999); GLUCOSE 88 mg/dL (70-99); POTASSIUM 4.4 MEQ/L (3.7-5.4); SODIUM 141 MEQ/L (136-147); TOTAL BILIRUBIN 0.5 MG/DL (0.0-1.0); TOTAL PROTEIN 5.8 G/DL (6.4-8.3); UREA NITROGEN (BUN) 11 mg/dL (9-23)
[2018-01-06 08:11] VITALS: BP 136/84
[2018-01-06 11:30] VITALS: BP 154/85
[2018-01-06 16:09] VITALS: BP 136/82
[2018-01-06 19:25] VITALS: BP 158/88
[2018-01-06 23:42] VITALS: BP 157/94
[2018-01-07 03:21] VITALS: BP 140/81
[2018-01-07 08:08] VITALS: BP 147/92
[2018-01-07] MEDS ORDERED: COMPAZINE10 MG PO (11:30)
[2018-01-07 11:53] VITALS: BP 128/74
== END 2018-01-07 13:36 | disposition home or self-care (01) | DRG 683 ==
LOC: EME 21:25 → 5SOUTH 01-05 02:17 → EDOF 01-05 02:17 → ENRESERV 01-05 02:20 → 5SOUTH 01-05 03:26
PROVIDERS: Emergency Medicine; Hospitalist; Physician Assistant
DX: N17.9 Acute kidney failure, unspecified (principal); A04.5 Campylobacter enteritis; E86.0 Dehydration; R55 Syncope and collapse; S01.81XA Laceration without foreign body of other part of head, initial encounter; W19.XXXA Unspecified fall, initial encounter; I10 Essential (primary) hypertension; I69.351 Hemiplegia and hemiparesis following cerebral infarction affecting right dominant side; K76.0 Fatty (change of) liver, not elsewhere classified; I25.10 Atherosclerotic heart disease of native coronary artery without angina pectoris; J44.9 Chronic obstructive pulmonary disease, unspecified; E66.9 Obesity, unspecified; Z68.38 Body mass index [BMI] 38.0-38.9, adult; E78.5 Hyperlipidemia, unspecified; N40.0 Benign prostatic hyperplasia without lower urinary tract symptoms; M54.30 Sciatica, unspecified side; G89.29 Other chronic pain; G56.03 Carpal tunnel syndrome, bilateral upper limbs; K21.9 Gastro-esophageal reflux disease without esophagitis; I25.2 Old myocardial infarction; F41.9 Anxiety disorder, unspecified; F32.9 Major depressive disorder, single episode, unspecified; Z86.19 Personal history of other infectious and parasitic diseases; Z87.891 Personal history of nicotine dependence; Z95.5 Presence of coronary angioplasty implant and graft; Z79.02 Long term (current) use of antithrombotics/antiplatelets; Z79.82 Long term (current) use of aspirin; Z79.2 Long term (current) use of antibiotics
CPT/HCPCS: 70450; 70551; 71045; 74176; 80048; 80053; 81003; 83605; 83690; 84484; 85025; 85379; 85610; 85730; 87040; 87493; 87801; 93005; 94640; 94664; 95819; 99281; 99285; J0780; J1650; J1956; J2060; J2270; J2405; J2765; J3010; J7030; S0028; S0030

== ENCOUNTER 2018-01-16 14:48 | Emergency (ER) | payer OTHER ==
[~2018-01-16] VITALS: Ht 172.7 cm; Wt 110.0 kg
[~2018-01-16 14:48] MED LIST changes: +ASPIRIN EC325 MG PO; +COMPAZINE10 MG PO; +IRON240 MG PO; +LEVOFLOXACIN750 MG PO; +METRONIDAZOLE500 MG PO; +ONDANSETRON HCL4 MG PO
[2018-01-16 15:31] LABS: HEMOGLOBIN 13.6 G/DL (12.5-16.6); MCH 28.9 PG (29.0-34.0); MCHC 34.9 G/DL (30.0-36.0); MCV 82.8 FL (86-99); RBC DIS.WIDTH-CV 12.9 % (11.8-14.6); RBC DIS.WIDTH-SD 38.8 % (39-53); RED BLOOD COUNT 4.71 M/uL (4.00-5.50); WHITE BLOOD COUNT 7.2 K/uL (4.1-10.2)
[2018-01-16 15:36] LABS: PLATELET COUNT 236 K/uL (156-360)
[2018-01-16 15:41] LABS: CHLORIDE 111 mEq/L (99-109); POTASSIUM 4.2 mEq/L (3.7-5.4); SODIUM 145 mEq/L (136-147)
[2018-01-16 15:42] LABS: GLUCOSE 104 mg/dL (70-99)
[2018-01-16 15:46] LABS: CREATININE 0.9 mg/dL (0.6-1.3); GFR ESTIMATE (CALCULATED) > 59 mL/min/ (58.99-99999)
[2018-01-16 15:47] LABS: UREA NITROGEN (BUN) 13 mg/dL (9-23)
[2018-01-16 15:52] LABS: TROP-I INTERPRETATION NEGATIVE; TROPONIN-I < 0.01 ng/mL (0.0-0.30)
[2018-01-16] MEDS ORDERED: DUONEB 2.5-0.5 M3 ML AEROSOL (17:28)
[2018-01-16] MEDS ORDERED: VENTOLIN HFA18 GM IH (17:31)
[2018-01-16 19:04] LABS: TROP-I INTERPRETATION NEGATIVE; TROPONIN-I < 0.01 ng/mL (0.0-0.30)
[2018-01-16] MEDS ORDERED: REGLAN10 MG PO (19:36)
[2018-01-16] MEDS ORDERED: BENTYL20 MG PO (19:36)
[2018-01-16 20:23] VITALS: BP 157/80
== END 2018-01-16 20:24 | disposition home or self-care (01) ==
LOC: EME 14:48
PROVIDERS: Nurse Practitioner Family
DX: R07.9 Chest pain, unspecified (principal); R10.32 Left lower quadrant pain; R11.2 Nausea with vomiting, unspecified; R19.7 Diarrhea, unspecified; I10 Essential (primary) hypertension; E78.5 Hyperlipidemia, unspecified; J45.909 Unspecified asthma, uncomplicated; I25.2 Old myocardial infarction; F32.9 Major depressive disorder, single episode, unspecified; J43.9 Emphysema, unspecified; K21.9 Gastro-esophageal reflux disease without esophagitis; Z86.73 Personal history of transient ischemic attack (TIA), and cerebral infarction without residual deficits; Z95.5 Presence of coronary angioplasty implant and graft; Z79.82 Long term (current) use of aspirin; Z88.0 Allergy status to penicillin; Z87.891 Personal history of nicotine dependence
CPT/HCPCS: 71046; 74177; 80048; 84484; 85027; 93005; 99281; 99285; J0780; J2405; J2765; J3010; J7120

== ENCOUNTER 2018-01-20 13:36 | Emergency (ER) | payer OTHER ==
[~2018-01-20] VITALS: Ht 172.7 cm; Wt 104.5 kg
[~2018-01-20 13:36] MED LIST changes: +BENTYL20 MG PO
[2018-01-20] MEDS ORDERED: OXYCODONE HCL10 MG PO (16:14)
[2018-01-20 17:05] VITALS: BP 138/86
== END 2018-01-20 17:06 | disposition home or self-care (01) ==
LOC: EME 13:36
DX: M54.42 Lumbago with sciatica, left side (principal); M54.41 Lumbago with sciatica, right side; G89.29 Other chronic pain; M79.605 Pain in left leg; M79.604 Pain in right leg; I10 Essential (primary) hypertension; J44.9 Chronic obstructive pulmonary disease, unspecified; K21.9 Gastro-esophageal reflux disease without esophagitis; E78.5 Hyperlipidemia, unspecified; I69.351 Hemiplegia and hemiparesis following cerebral infarction affecting right dominant side; I25.2 Old myocardial infarction; F32.9 Major depressive disorder, single episode, unspecified; Z79.51 Long term (current) use of inhaled steroids; Z79.891 Long term (current) use of opiate analgesic; Z79.82 Long term (current) use of aspirin; Z79.02 Long term (current) use of antithrombotics/antiplatelets; Z87.891 Personal history of nicotine dependence; Z95.5 Presence of coronary angioplasty implant and graft; Z98.890 Other specified postprocedural states; Z87.01 Personal history of pneumonia (recurrent); Z85.9 Personal history of malignant neoplasm, unspecified; Z90.49 Acquired absence of other specified parts of digestive tract; Z88.0 Allergy status to penicillin; Z88.1 Allergy status to other antibiotic agents
CPT/HCPCS: 99281; 99284; J2270

== ENCOUNTER 2018-03-04 16:22 | Observation (INO) | payer OTHER ==
[~2018-03-04] VITALS: Ht 172.7 cm; Wt 111.7 kg
[~2018-03-04 16:22] MED LIST changes: +OXYCODONE HCL10 MG PO
[2018-03-04 16:59] LABS: BASOPHIL (%) 0.2 % (0-1); EOSINOPHIL (%) 0 % (0-5); HEMATOCRIT 40.9 % (38.0-50.0); IMMATURE GRANULOCYTE (%) 0.2 % (0.0-0.7); LYMPHOCYTE (%) 9.6 % (15-42); LYMPHOCYTE COUNT 1.2 K/uL (1.0-2.8); MCHC 34.2 G/DL (30.0-36.0); MCV 81.8 FL (86-99); MONOCYTE (%) 4.5 % (3-12); MONOCYTE COUNT 0.6 K/uL (0-0.8); NEUTROPHIL (%) 85.5 % (45-76); NEUTROPHIL COUNT 10.4 K/uL (1.8-6.4); PLATELET COUNT 243 K/uL (156-360); RBC DIS.WIDTH-CV 12.3 % (11.8-14.6); RBC DIS.WIDTH-SD 36.4 % (39-53); WHITE BLOOD COUNT 12.2 K/uL (4.1-10.2)
[2018-03-04 17:08] LABS: CHLORIDE 106 mEq/L (99-109); POTASSIUM 3.8 mEq/L (3.7-5.4); SODIUM 142 mEq/L (136-147)
[2018-03-04 17:10] LABS: GLUCOSE 169 mg/dL (70-99)
[2018-03-04 17:14] LABS: CREATININE 1.2 mg/dL (0.6-1.3); GFR ESTIMATE (CALCULATED) > 59 mL/min/ (58.99-99999); SERUM ETHYL ALCOHOL < 10 mg/dL
[2018-03-04 17:16] LABS: UREA NITROGEN (BUN) 17 mg/dL (9-23)
[2018-03-04 17:17] LABS: ACETAMINOPHEN (TYLENOL) < 10 mcg/mL (10-30); SALICYLATE < 5.0 MG/DL (15-30)
[2018-03-04 18:03] LABS: AMPHETAMINE NEGATIVE (500 ng/mL); BARBITURATES NEGATIVE (200 ng/mL); BENZODIAZEPINES NEGATIVE (150 ng/mL); BUPRENORPHINE NEGATIVE (10 ng/mL); COCAINE NEGATIVE (150 ng/mL); METHADONE NEGATIVE (200 ng/mL); METHAMPHETAMINE NEGATIVE (500 ng/mL); OPIATES (MORPHINE) NEGATIVE (100 ng/mL); OXYCODONE NEGATIVE (100 ng/mL); PHENCYCLIDINE NEGATIVE (25 ng/mL); PROPOXYPHENE NEGATIVE (300 ng/mL); THC CANNABINOIDS NEGATIVE (50 ng/mL); TRICYCLIC ANTIDEPRESSANTS NEGATIVE (300 ng/mL)
[2018-03-04] MEDS ORDERED: NARCAN4 MG NS (19:18)
[2018-03-04 21:51] LABS: TROP-I INTERPRETATION NEGATIVE; TROPONIN-I < 0.01 ng/mL (0.0-0.30)
[2018-03-05 00:23] VITALS: BP 173/91
[2018-03-05 04:17] VITALS: BP 169/82
[2018-03-05 05:52] LABS: HEMATOCRIT 38.6 % (38.0-50.0); HEMOGLOBIN 12.4 G/DL (12.5-16.6); MCHC 32.1 G/DL (30.0-36.0); MCV 87.1 FL (86-99); PLATELET COUNT 200 K/uL (156-360); RBC DIS.WIDTH-CV 12.6 % (11.8-14.6); RBC DIS.WIDTH-SD 39.9 % (39-53); RED BLOOD COUNT 4.43 M/uL (4.00-5.50); WHITE BLOOD COUNT 11.6 K/uL (4.1-10.2)
[2018-03-05 05:57] LABS: CHLORIDE 105 MEQ/L (99-109); CREATININE 0.9 MG/DL (0.6-1.3); GFR ESTIMATE (CALCULATED) > 59 mL/min/ (58.99-99999); POTASSIUM 3.9 MEQ/L (3.7-5.4); SODIUM 140 MEQ/L (136-147); UREA NITROGEN (BUN) 18 mg/dL (9-23)
[2018-03-05 06:19] LABS: GLUCOSE 108 mg/dL (70-99)
[2018-03-05 08:11] VITALS: BP 156/95
[2018-03-05 11:44] VITALS: BP 160/91
[2018-03-05 16:25] VITALS: BP 141/87
[2018-03-05 16:29] LABS: APPEARANCE SL.HAZY ((CLEAR)); BILIRUBIN NEGATIVE; BLOOD NEGATIVE; COLOR YELLOW ((YELLOW)); GLUCOSE (STRIP) NEGATIVE; KETONES NEGATIVE; LEUKOCYTES NEGATIVE; NITRITE NEGATIVE; PROTEIN (STRIP) 30; SPECIFIC GRAVITY 1.026 (1.000-1.030); UROBILINOGEN 0.2 MG/DL (0.2-1.0)
[2018-03-05 16:48] LABS: BACTERIA NONE SEEN /HPF; EPITHELIAL CELLS NONE SEEN /HPF; HYALINE CASTS 0-5 /LPF; MUCUS 2+ /LPF; RED BLOOD CELLS 0-5 /HPF (0-5); UCUL ADDED? NO; WHITE BLOOD CELLS 0-5 /HPF (0-5)
[2018-03-05 19:26] VITALS: BP 177/105
[2018-03-06 00:06] VITALS: BP 138/76
[2018-03-06 04:19] VITALS: BP 151/92
[2018-03-06 06:03] LABS: BASOPHIL (%) 0.6 % (0-1); EOSINOPHIL (%) 0.9 % (0-5); EOSINOPHIL COUNT 0.1 K/uL (0-0.3); HEMOGLOBIN 12.1 G/DL (12.5-16.6); IMMATURE GRANULOCYTE (%) 0.3 % (0.0-0.7); LYMPHOCYTE (%) 30.3 % (15-42); LYMPHOCYTE COUNT 1.9 K/uL (1.0-2.8); MCHC 33.6 G/DL (30.0-36.0); MCV 86.3 FL (86-99); MONOCYTE (%) 6.7 % (3-12); MONOCYTE COUNT 0.4 K/uL (0-0.8); NEUTROPHIL (%) 61.2 % (45-76); NEUTROPHIL COUNT 3.9 K/uL (1.8-6.4); PLATELET COUNT 176 K/uL (156-360); RBC DIS.WIDTH-CV 12.4 % (11.8-14.6); RBC DIS.WIDTH-SD 38.8 % (39-53); RED BLOOD COUNT 4.17 M/uL (4.00-5.50); WHITE BLOOD COUNT 6.4 K/uL (4.1-10.2)
[2018-03-06 06:06] LABS: ALBUMIN 4.1 G/DL (3.2-4.8); ALKALINE PHOSPHATASE 47 IU/L (3-129); ALT (GPT) 18 IU/L (3-49); AST (GOT) 14 IU/L (2-34); CHLORIDE 105 MEQ/L (99-109); CREATININE 0.9 MG/DL (0.6-1.3); GFR ESTIMATE (CALCULATED) > 59 mL/min/ (58.99-99999); GLUCOSE 96 mg/dL (70-99); POTASSIUM 3.9 MEQ/L (3.7-5.4); SODIUM 141 MEQ/L (136-147); TOTAL BILIRUBIN 0.4 MG/DL (0.0-1.0); TOTAL PROTEIN 5.8 G/DL (6.4-8.3); UREA NITROGEN (BUN) 16 mg/dL (9-23)
[2018-03-06 08:29] VITALS: BP 118/78; BP 176/112
[2018-03-06] MEDS ORDERED: OXYCODONE HCL5 MG PO (11:18)
[2018-03-06 12:18] VITALS: BP 159/94
== END 2018-03-06 12:20 | disposition home or self-care (01) ==
LOC: EME 16:22 → EDOF 23:17 → 4SOUTH 23:17 → EDOF 23:17 → 4SOUTH 03-05 00:18
PROVIDERS: Emergency Medicine; Hospitalist
DX: T50.901A Poisoning by unspecified drugs, medicaments and biological substances, accidental (unintentional), initial encounter (principal); R65.10 Systemic inflammatory response syndrome (SIRS) of non-infectious origin without acute organ dysfunction; R00.0 Tachycardia, unspecified; G89.29 Other chronic pain; M54.5 Low back pain; M54.2 Cervicalgia; I10 Essential (primary) hypertension; E78.5 Hyperlipidemia, unspecified; J44.9 Chronic obstructive pulmonary disease, unspecified; F11.20 Opioid dependence, uncomplicated; I25.10 Atherosclerotic heart disease of native coronary artery without angina pectoris; Z95.5 Presence of coronary angioplasty implant and graft; I69.398 Other sequelae of cerebral infarction; R53.1 Weakness; F41.9 Anxiety disorder, unspecified; F32.9 Major depressive disorder, single episode, unspecified; Z86.19 Personal history of other infectious and parasitic diseases; G47.33 Obstructive sleep apnea (adult) (pediatric); Z91.19 Patient's noncompliance with other medical treatment and regimen; F12.90 Cannabis use, unspecified, uncomplicated; Z88.0 Allergy status to penicillin; Z88.1 Allergy status to other antibiotic agents; Z87.891 Personal history of nicotine dependence; Z80.41 Family history of malignant neoplasm of ovary; Z82.49 Family history of ischemic heart disease and other diseases of the circulatory system; Z83.3 Family history of diabetes mellitus; E66.01 Morbid (severe) obesity due to excess calories; Z68.37 Body mass index [BMI] 37.0-37.9, adult; Z79.02 Long term (current) use of antithrombotics/antiplatelets; Z79.82 Long term (current) use of aspirin
CPT/HCPCS: 71046; 80048; 80053; 81003; 84484; 85025; 85027; 93005; 94640; 99281; 99285; G0378; G0480; J1644; J2405; J7030; J7040; Q0177